=== PATIENT | female | born 1945 ===

== ENCOUNTER 2021-12-09 18:21 | Outpatient (REF) | payer MEDICARE, OTHER, SELFPAY ==
[2021-12-11 10:21] LABS: Lyme Ab w Rflx to Lyme Confirm Negative (Negative)
[2021-12-11 11:24] LABS: COVID-19 RT-PCR UVMMC Result Negative (Negative)
== END 2021-12-09 18:22 | disposition home or self-care (01) ==
LOC: LBN 18:21
PROVIDERS: Visit Provider Physician Assistant Medical
DX: H92.01 Otalgia, right ear (principal); J02.9 Acute pharyngitis, unspecified; T14.8XXA Other injury of unspecified body region, initial encounter; W57.XXXA Bitten or stung by nonvenomous insect and other nonvenomous arthropods, initial encounter; Z20.822 Contact with and (suspected) exposure to COVID-19
CPT/HCPCS: U0003; 86618; 87070